=== PATIENT | female | born 1930 | race Hispanic/Latino ===

== ENCOUNTER 2022-02-24 17:31 | Inpatient (IN) | payer SELFPAY ==
[2022-02-24] MEDS ORDERED: Ondansetron ODT 4 MG TAB PO PRN (19:36)
[2022-02-24] MEDS ORDERED: Bisacodyl 5 MG TAB PO PRN (19:36)
[2022-02-24] MEDS ORDERED: Ondansetron PF 4 MG/2 ML Vial IVP PRN (19:36)
[2022-02-24 20:20] LABS: #Eosinphils 0.2 10x3/uL (0.0-0.5); #Monocytes 0.4 10x3/uL (0.0-1.1); #Neutrophils 5.6 10x3/uL (1.5-8.4); %Basophils 0.3 % (0.0-2.0); %Eosinophils 3.2 % (0.0-6.0); %Lymphocytes 9.6 % (18.0-47.0); %Monocytes 5.5 % (0.0-10.0); %Neutrophils 80.8 % (40.0-75.0); Hemoglobin 12.1 g/dL (12.0-15.5); Mean Corpuscular HGB CONC 33.4 g/dL (32.0-36.0); Mean Corpuscular Hemoglobin 36.2 pg (27.0-33.0); Mean Corpuscular Volume 108.4 fl (81.6-98.3); Mean Platelet Volume 10.2 fl (7.4-10.4); Platelet Count 140 10x3/uL (150-450); RBC Distribution Width 13.2 % (11.5-14.5); Red Blood Cell (RBC) Count 3.34 10x6/uL (3.90-5.03); White Blood Cell (WBC) Count 6.9 10x3/uL (3.5-10.5)
[2022-02-24 20:30] VITALS: BMI 34.0
[2022-02-24 20:32] LABS: ALT (SGPT) 7 U/L (8-55); AST (SGOT) 17 U/L (5-34); Alkaline Phosphatase 74 U/L (40-110); Anion Gap 17 mmol/L (10-20); BUN (Urea Nitrogen) 25 mg/dL (9.8-20.1); Calc. Creatinine Clearance 52 mL/min (70-130); Calcium 9.1 mg/dL (7.8-10.44); Carbon Dioxide 26 mmol/L (23-31); Chloride 102 mmol/L (98-107); Globulin 2.8 g/dL (2.4-3.5); Glucose 138 mg/dL (83-110); Magnesium 1.8 mg/dL (1.6-2.6); Potassium 4.5 mmol/L (3.5-5.1); Protein, Total 6.8 g/dL (5.8-8.1); Sodium 140 mmol/L (136-145)
[2022-02-24 20:38] LABS: Troponin I 0.011 ng/mL (< 0.028)
[2022-02-24] MEDS: Morphine 2 MG/ML VIAL SLOW IVP PRN (20:39)
[2022-02-24] MEDS ORDERED: Carvedilol 6.25 MG TAB PO SCH (20:45)
[2022-02-24] MEDS ORDERED: Sodium Chloride 0.9% 1,000 ML IV SCH (21:00)
[2022-02-24 21:21] LABS: Platelet Morphology Comment Appears Adequate; RBC Morphology Normal
[2022-02-24] MEDS: HYDROcodone/Acetaminophen 5/325 mg Tablet PO PRN (22:15)
[2022-02-24] MEDS: Melatonin 3 MG TAB PO SCH (23:36)
[2022-02-25 02:52] LABS: SARS-CoV-2 NAA Rapid Test Not Detected (NotDetected)
[2022-02-25 04:50] LABS: Anion Gap 16 mmol/L (10-20); BUN (Urea Nitrogen) 23 mg/dL (9.8-20.1); Calc. Creatinine Clearance 65 mL/min (70-130); Calcium 8.3 mg/dL (7.8-10.44); Carbon Dioxide 21 mmol/L (23-31); Chloride 107 mmol/L (98-107); Glucose 136 mg/dL (83-110); Magnesium 1.8 mg/dL (1.6-2.6); Potassium 4.3 mmol/L (3.5-5.1); Sodium 140 mmol/L (136-145)
[2022-02-25 05:01] LABS: #Eosinphils 0.1 10x3/uL (0.0-0.5); #Monocytes 0.4 10x3/uL (0.0-1.1); #Neutrophils 3.5 10x3/uL (1.5-8.4); %Basophils 0.6 % (0.0-2.0); %Eosinophils 2.2 % (0.0-6.0); %Lymphocytes 16.8 % (18.0-47.0); %Monocytes 7.4 % (0.0-10.0); %Neutrophils 72.2 % (40.0-75.0); Hemoglobin 10.4 g/dL (12.0-15.5); Mean Corpuscular HGB CONC 34.2 g/dL (32.0-36.0); Mean Corpuscular Hemoglobin 37.1 pg (27.0-33.0); Mean Corpuscular Volume 108.6 fl (81.6-98.3); Mean Platelet Volume 10.5 fl (7.4-10.4); Platelet Count 129 10x3/uL (150-450); RBC Distribution Width 13.3 % (11.5-14.5); White Blood Cell (WBC) Count 4.9 10x3/uL (3.5-10.5)
[2022-02-25] MEDS: HYDROcodone/Acetaminophen 5/325 mg Tablet PO PRN ×3 (05:05→18:24)
[2022-02-25] MEDS: Sodium Chloride 0.9% 1,000 ML IV SCH (07:14)
[2022-02-25 08:07] LABS: PTT 28.5 sec (22.0-33.0); Prothrombin Time 11.1 sec (9.5-12.1)
[2022-02-25] MEDS: Potassium Chloride 10 MEQ TAB PO SCH (09:07)
[2022-02-25] MEDS: Ascorbic Acid 500 mg Chewable Tablet PO SCH (09:07)
[2022-02-25] MEDS: Enoxaparin Sodium 40 MG/0.4 ML SYRINGE SC SCH (09:07)
[2022-02-25] MEDS: Morphine 2 MG/ML VIAL SLOW IVP PRN ×3 (09:07→20:01)
[2022-02-25] MEDS: Cholecalciferol 1,000 UNITS (25 MCG) TAB PO SCH (09:08)
[2022-02-25] MEDS: Furosemide 20 MG TAB PO SCH (09:08)
[2022-02-25] MEDS: Ubidecarenone 50 MG CAP PO SCH (09:08)
[2022-02-25] MEDS: Carvedilol 6.25 MG TAB PO SCH ×2 (09:08→16:44)
[2022-02-25] MEDS: Melatonin 3 MG TAB PO SCH (21:15)
[2022-02-26 04:10] LABS: #Eosinphils 0.2 10x3/uL (0.0-0.5); #Monocytes 0.4 10x3/uL (0.0-1.1); #Neutrophils 3.1 10x3/uL (1.5-8.4); %Basophils 0.4 % (0.0-2.0); %Eosinophils 3.8 % (0.0-6.0); %Lymphocytes 17.3 % (18.0-47.0); %Monocytes 9.3 % (0.0-10.0); %Neutrophils 68.5 % (40.0-75.0); Hemoglobin 8.6 g/dL (12.0-15.5); Mean Corpuscular HGB CONC 32.8 g/dL (32.0-36.0); Mean Corpuscular Hemoglobin 36.8 pg (27.0-33.0); Mean Platelet Volume 10.3 fl (7.4-10.4); Platelet Count 111 10x3/uL (150-450); RBC Distribution Width 13.5 % (11.5-14.5); Red Blood Cell (RBC) Count 2.34 10x6/uL (3.90-5.03); White Blood Cell (WBC) Count 4.5 10x3/uL (3.5-10.5)
[2022-02-26 04:24] LABS: Anion Gap 13 mmol/L (10-20); BUN (Urea Nitrogen) 24 mg/dL (9.8-20.1); Calc. Creatinine Clearance 61 mL/min (70-130); Calcium 8.2 mg/dL (7.8-10.44); Carbon Dioxide 23 mmol/L (23-31); Chloride 108 mmol/L (98-107); Glucose 141 mg/dL (83-110); Potassium 4.4 mmol/L (3.5-5.1); Sodium 140 mmol/L (136-145)
[2022-02-26 04:39] LABS: Platelet Morphology Comment Appears Decreased
[2022-02-26 04:41] LABS: Hypochromia SLIGHT = 6-15 cells (100X) (0-5/hpf); Macrocytosis SLIGHT = 6-15 cells (100X) (0-5/hpf); Microcytosis SLIGHT = 6-15 cells (100X) (0-5/hpf); Stomatocytes SLIGHT = 2-5 cells (100X) (0-1/hpf)
[2022-02-26] MEDS: HYDROcodone/Acetaminophen 5/325 mg Tablet PO PRN (07:05)
[2022-02-26] MEDS: Carvedilol 6.25 MG TAB PO SCH ×3 (08:25→16:40)
[2022-02-26] MEDS: Cholecalciferol 1,000 UNITS (25 MCG) TAB PO SCH (08:29)
[2022-02-26] MEDS: Enoxaparin Sodium 40 MG/0.4 ML SYRINGE SC SCH (08:29)
[2022-02-26] MEDS: Ascorbic Acid 500 mg Chewable Tablet PO SCH (08:29)
[2022-02-26] MEDS: Potassium Chloride 10 MEQ TAB PO SCH (08:29)
[2022-02-26] MEDS: Furosemide 20 MG TAB PO SCH (08:30)
[2022-02-26] MEDS: Ubidecarenone 50 MG CAP PO SCH (08:30)
[2022-02-26] MEDS: Sodium Chloride 0.9% 1,000 ML IV SCH (09:12)
[2022-02-26] MEDS ORDERED: Bupivacaine PF 0.5% 30 ML VIAL ONE (12:18)
[2022-02-26] MEDS ORDERED: EPINEPHrine 1 MG/ML AMP ONE ×2 (12:18→14:46)
[2022-02-26] MEDS ORDERED: Neomycin-Polymyxin 1 ML AMP ONE (12:19)
[2022-02-26] MEDS ORDERED: Dexmedetomidine 200 MCG/2 ML VIAL ONE (12:31)
[2022-02-26] MEDS ORDERED: PROPOFOL 20 ML ONE (12:33)
[2022-02-26] MEDS ORDERED: Fentanyl 100 MCG/2 ML VIAL ONE (12:34)
[2022-02-26] MEDS ORDERED: Lidocaine 1% PF 5 ML VIAL ONE ×2 (12:35→14:47)
[2022-02-26] MEDS ORDERED: Ondansetron PF 4 MG/2 ML Vial ONE (12:35)
[2022-02-26] MEDS ORDERED: ceFAZolin 2 GM/Dextrose 50 ML IVPB ONE (12:35)
[2022-02-26] MEDS ORDERED: Dexamethasone 4 mg/ml Vial ONE ×2 (12:35→14:48)
[2022-02-26] MEDS ORDERED: PHENYLEPHRINE-NS 100 MCG/ML 10 ML SYRINGE ONE ×3 (12:46→14:05)
[2022-02-26] MEDS ORDERED: HYDROcodone/Acetaminophen 5/325 mg Tablet PO PRN (14:32)
[2022-02-26] MEDS ORDERED: Ondansetron ODT 4 MG TAB PO PRN (14:42)
[2022-02-26] MEDS ORDERED: Ropivacaine 0.2% HCl/PF 20 ML ONE ×2 (14:45→14:47)
[2022-02-26 16:24] LABS: Mean Corpuscular HGB CONC 32.9 g/dL (32.0-36.0); Mean Corpuscular Hemoglobin 36.9 pg (27.0-33.0); Platelet Count 104 10x3/uL (150-450); RBC Distribution Width 13.5 % (11.5-14.5); Red Blood Cell (RBC) Count 2.17 10x6/uL (3.90-5.03); White Blood Cell (WBC) Count 7.4 10x3/uL (3.5-10.5)
[2022-02-26] MEDS: Aspirin 81 mg Enteric Coated Tablet PO SCH (20:36)
[2022-02-26] MEDS: Melatonin 3 MG TAB PO SCH (20:38)
[2022-02-26] MEDS ORDERED: Cyanocobalamin 1000 MCG/ML VIAL IM SCH (21:00)
[2022-02-26] MEDS: ceFAZolin 2 GM/Dextrose 50 ML 2 GM in Premix Bag 1 BAG IVPB SCH (23:26)
[2022-02-27 03:05] LABS: Hemoglobin 9.8 g/dL (12.0-15.5); Mean Corpuscular HGB CONC 34.8 g/dL (32.0-36.0); Mean Corpuscular Volume 100.7 fl (81.6-98.3); Mean Platelet Volume 9.9 fl (7.4-10.4); Platelet Count 97 10x3/uL (150-450); White Blood Cell (WBC) Count 4.7 10x3/uL (3.5-10.5)
[2022-02-27 03:16] LABS: ALT (SGPT) 9 U/L (8-55); AST (SGOT) 14 U/L (5-34); Albumin 2.8 g/dL (3.4-4.8); Alkaline Phosphatase 52 U/L (40-110); Anion Gap 13 mmol/L (10-20); BUN (Urea Nitrogen) 24 mg/dL (9.8-20.1); Bilirubin, Total 1.3 mg/dL (0.2-1.2); Calc. Creatinine Clearance 67 mL/min (70-130); Calcium 7.9 mg/dL (7.8-10.44); Carbon Dioxide 23 mmol/L (23-31); Chloride 111 mmol/L (98-107); Glucose 165 mg/dL (83-110); Potassium 4.6 mmol/L (3.5-5.1); Protein, Total 4.8 g/dL (5.8-8.1); Sodium 142 mmol/L (136-145)
[2022-02-27 03:19] LABS: MDiff Complete? YES; Manual Diff?? YES
[2022-02-27 03:49] LABS: Band 8 % (5-11); Lymphocytes 2 % (21-51); Monocytes 4 % (0-10); Neutrophil 84 % (42-75); Reactive Lymphocytes 2 % (0-10)
[2022-02-27 03:51] LABS: Platelet Morphology Comment Appears Decreased
[2022-02-27 03:52] LABS: Anisocytosis SLIGHT = 6-15 cells (100X) (0-5/hpf); Macrocytosis SLIGHT = 6-15 cells (100X) (0-5/hpf); Microcytosis SLIGHT = 6-15 cells (100X) (0-5/hpf)
[2022-02-27] MEDS: Sodium Chloride 0.9% 1,000 ML IV SCH ×2 (05:48→16:50)
[2022-02-27] MEDS: ceFAZolin 2 GM/Dextrose 50 ML 2 GM in Premix Bag 1 BAG IVPB SCH ×3 (06:16→21:40)
[2022-02-27] MEDS: Cholecalciferol 1,000 UNITS (25 MCG) TAB PO SCH (08:12)
[2022-02-27] MEDS: Furosemide 20 MG TAB PO SCH (08:13)
[2022-02-27] MEDS: Aspirin 81 mg Enteric Coated Tablet PO SCH ×2 (08:13→20:23)
[2022-02-27] MEDS: Carvedilol 3.125 MG TAB PO SCH ×2 (08:13→16:34)
[2022-02-27] MEDS: Potassium Chloride 10 MEQ TAB PO SCH (08:13)
[2022-02-27] MEDS: Ubidecarenone 50 MG CAP PO SCH (08:13)
[2022-02-27] MEDS: Ascorbic Acid 500 mg Chewable Tablet PO SCH (08:13)
[2022-02-27] MEDS: Morphine 2 MG/ML VIAL SLOW IVP PRN ×3 (08:36→23:32)
[2022-02-27] MEDS: Senokot S 8.6-50 MG TAB PO PRN (15:02)
[2022-02-27] MEDS ORDERED: Midodrine HCl 2.5 MG TAB PO SCH (18:45)
[2022-02-27] MEDS: Melatonin 3 MG TAB PO SCH (20:23)
[2022-02-27] MEDS: Midodrine HCl 2.5 MG TAB PO SCH (21:39)
[2022-02-28] MEDS: Midodrine HCl 2.5 MG TAB PO SCH ×6 (02:33→23:59)
[2022-02-28] MEDS: ceFAZolin 2 GM/Dextrose 50 ML 2 GM in Premix Bag 1 BAG IVPB SCH ×3 (05:47→21:20)
[2022-02-28] MEDS ORDERED: Enoxaparin Sodium 30 MG/0.3 ML SYRINGE ONE (08:07)
[2022-02-28] MEDS: Potassium Chloride 10 MEQ TAB PO SCH (08:19)
[2022-02-28] MEDS: Ascorbic Acid 500 mg Chewable Tablet PO SCH (08:20)
[2022-02-28] MEDS: Ubidecarenone 50 MG CAP PO SCH (08:20)
[2022-02-28] MEDS: Aspirin 81 mg Enteric Coated Tablet PO SCH ×2 (08:20→21:19)
[2022-02-28] MEDS: Cholecalciferol 1,000 UNITS (25 MCG) TAB PO SCH (08:20)
[2022-02-28] MEDS: Enoxaparin Sodium 30 MG/0.3 ML SYRINGE SC SCH (08:21)
[2022-02-28] MEDS: Carvedilol 3.125 MG TAB PO SCH ×2 (08:21→21:19)
[2022-02-28] MEDS: Acetaminophen 325 MG TAB PO PRN (09:59)
[2022-02-28] MEDS: Morphine 2 MG/ML VIAL SLOW IVP PRN (10:55)
[2022-02-28] MEDS: HYDROcodone/Acetaminophen 5/325 mg Tablet PO PRN (17:55)
[2022-02-28] MEDS: Sodium Chloride 0.9% 1,000 ML IV SCH (18:30)
[2022-02-28] MEDS: Senokot S 8.6-50 MG TAB PO PRN (21:19)
[2022-02-28] MEDS: Melatonin 3 MG TAB PO SCH (21:20)
[2022-03-01] MEDS: Acetaminophen 325 MG TAB PO PRN (01:53)
[2022-03-01] MEDS: HYDROcodone/Acetaminophen 5/325 mg Tablet PO PRN ×3 (03:30→18:28)
[2022-03-01] MEDS: Midodrine HCl 2.5 MG TAB PO SCH ×6 (03:31→23:39)
[2022-03-01] MEDS: ceFAZolin 2 GM/Dextrose 50 ML 2 GM in Premix Bag 1 BAG IVPB SCH ×3 (05:43→21:28)
[2022-03-01] MEDS: Carvedilol 3.125 MG TAB PO SCH ×2 (08:00→15:29)
[2022-03-01] MEDS: Ubidecarenone 50 MG CAP PO SCH (08:00)
[2022-03-01] MEDS: Ascorbic Acid 500 mg Chewable Tablet PO SCH (08:01)
[2022-03-01] MEDS: Cholecalciferol 1,000 UNITS (25 MCG) TAB PO SCH (08:01)
[2022-03-01] MEDS: Furosemide 20 MG TAB PO SCH (08:01)
[2022-03-01] MEDS: Aspirin 81 mg Enteric Coated Tablet PO SCH ×2 (08:01→21:28)
[2022-03-01] MEDS: Potassium Chloride 10 MEQ TAB PO SCH (08:01)
[2022-03-01] MEDS: Enoxaparin Sodium 30 MG/0.3 ML SYRINGE SC SCH (09:11)
[2022-03-01] MEDS ORDERED: Magnesium Citrate 300 ML BOT PO SCH (10:00)
[2022-03-01] MEDS: Sodium Chloride 0.9% 1,000 ML IV SCH (13:35)
[2022-03-01] MEDS: Senokot S 8.6-50 MG TAB PO PRN (18:27)
[2022-03-01] MEDS: Melatonin 3 MG TAB PO SCH (21:28)
[2022-03-02] MEDS: Morphine 2 MG/ML VIAL SLOW IVP PRN (01:28)
[2022-03-02] MEDS: HYDROcodone/Acetaminophen 5/325 mg Tablet PO PRN ×4 (01:30→18:23)
[2022-03-02] MEDS: Sodium Chloride 0.9% 1,000 ML IV SCH (02:00)
[2022-03-02] MEDS: Midodrine HCl 2.5 MG TAB PO SCH ×5 (03:13→17:52)
[2022-03-02] MEDS: ceFAZolin 2 GM/Dextrose 50 ML 2 GM in Premix Bag 1 BAG IVPB SCH ×3 (06:22→21:22)
[2022-03-02] MEDS: Ascorbic Acid 500 mg Chewable Tablet PO SCH (09:14)
[2022-03-02] MEDS: Aspirin 81 mg Enteric Coated Tablet PO SCH ×2 (09:14→21:20)
[2022-03-02] MEDS: Enoxaparin Sodium 30 MG/0.3 ML SYRINGE SC SCH (09:14)
[2022-03-02] MEDS: Furosemide 20 MG TAB PO SCH (09:14)
[2022-03-02] MEDS: Carvedilol 3.125 MG TAB PO SCH ×2 (09:14→18:23)
[2022-03-02] MEDS: Cholecalciferol 1,000 UNITS (25 MCG) TAB PO SCH (09:14)
[2022-03-02] MEDS: Potassium Chloride 10 MEQ TAB PO SCH (09:15)
[2022-03-02] MEDS: Ubidecarenone 50 MG CAP PO SCH (09:15)
[2022-03-02] MEDS: Melatonin 3 MG TAB PO SCH (21:19)
[2022-03-03] MEDS: HYDROcodone/Acetaminophen 5/325 mg Tablet PO PRN ×3 (00:35→13:03)
[2022-03-03] MEDS: Midodrine HCl 2.5 MG TAB PO SCH ×4 (01:11→13:07)
[2022-03-03] MEDS: Sodium Chloride 0.9% 1,000 ML IV SCH (04:53)
[2022-03-03] MEDS: ceFAZolin 2 GM/Dextrose 50 ML 2 GM in Premix Bag 1 BAG IVPB SCH (06:02)
[2022-03-03] MEDS: Carvedilol 3.125 MG TAB PO SCH (06:57)
[2022-03-03] MEDS: Furosemide 20 MG TAB PO SCH (09:29)
[2022-03-03] MEDS: Ubidecarenone 50 MG CAP PO SCH (09:29)
[2022-03-03] MEDS: Aspirin 81 mg Enteric Coated Tablet PO SCH (09:29)
[2022-03-03] MEDS: Potassium Chloride 10 MEQ TAB PO SCH (09:29)
[2022-03-03] MEDS: Cholecalciferol 1,000 UNITS (25 MCG) TAB PO SCH (09:29)
[2022-03-03] MEDS: Enoxaparin Sodium 30 MG/0.3 ML SYRINGE SC SCH (09:29)
[2022-03-03] MEDS: Ascorbic Acid 500 mg Chewable Tablet PO SCH (09:30)
[2022-03-03 12:20] VITALS: TEMP 98.1
[2022-03-03 12:49] VITALS: BP 147/79
== END 2022-03-03 13:35 | disposition home or self-care (01) | DRG 481 ==
LOC: CSHERS 17:31 → CSHTELE 20:27 → CSHICU 02-26 15:30 → CSHTELE 03-01 15:57
PROVIDERS: ADMIT Family Medicine; ATTEND Hospitalist
PROC: 0QSB06Z Reposition Right Lower Femur with Intramedullary Internal Fixation Device, Open Approach (ICD-10-PCS; principal; 2022-02-26)
PROC: 30233N1 Transfusion of Nonautologous Red Blood Cells into Peripheral Vein, Percutaneous Approach (ICD-10-PCS; 2022-02-26)
DX: S72.401A Unspecified fracture of lower end of right femur, initial encounter for closed fracture (principal); D62 Acute posthemorrhagic anemia; Z96.651 Presence of right artificial knee joint; W19.XXXA Unspecified fall, initial encounter; I35.0 Nonrheumatic aortic (valve) stenosis; I11.9 Hypertensive heart disease without heart failure; I95.81 Postprocedural hypotension; Z20.822 Contact with and (suspected) exposure to COVID-19; Z79.899 Other long term (current) drug therapy; Y92.009 Unspecified place in unspecified non-institutional (private) residence as the place of occurrence of the external cause
CPT/HCPCS: 36415; 36430; 71045; 80048; 80053; 82607; 82746; 83735; 84484; 85025; 85610; 85730; 86850; 86900; 86901; 93005; 93010; 93306; 94760; C1713; J0171; J0690; J1071; J1100; J1650; J2270; J2405; J2704; J2795; J3010; J3420; J7050; P9016; Q0162; S0020; U0002